=== PATIENT | female | born 1955 | race Caucasian/White ===

== ENCOUNTER 2018-01-15 01:18 | Inpatient (IN) | payer OTHER ==
--- NOTE | 2018-01-12 13:33 | Cons- Neurosurgical ---
General Information and HPI Consulting Request Date of Consult: 01/12/18 Requested By: Keyon Ku MD Reason for Consult: Severe myelopathy Source of Information: patient, EMS Exam Limitations: no limitations History of Present Illness: 62-year-old right-handed lady with 3-1/2 months of symptoms starting with numbness in her hand and difficulty with gait and the multiple falls who was found to be severely myelopathic Her symptoms are worse with extension and flexion of her neck but only marginally so Allergies/Medications Allergies: Coded Allergies: No Known Allergies (01/11/18) Home Med List: Amlodipine/Atorvastatin (Caduet 5 MG-10 MG Tablet) 5 MG-10 MG TABLET HTN/ CHOLESTEROL (Reported) Bupropion HCl (Wellbutrin Sr) 100 MG TABLET.ER 1 TAB PO BID SMOKING CESSATION (Reported) Meloxicam (Mobic) 15 MG TABLET 1 TAB PO DAILY MUCLE RELAXER (Reported) Current Medications: Current Medications Sig/Vida Start time Last Medication Dose Route Stop Time Status Admin Cefazolin Sodium 2,000 MG ONCE 01/15 0000 NR IV 01/15 0749 Past History Medical History Blood Transfusion Hx: No Neurological: myelopathy EENT: NONE Musculoskeletal: osteoarthritis Psychiatric: depression Surgical History Pertinent Surgical History: hysterectomy Psychosocial History Where Do You Live? Home Who Do You Live With? spouse Services at Home: None Primary Language: Czech Smoking Status: Current Everyday Smoker ETOH Use: denies use Illicit Drug Use: denies illicit drug use Living Will? unknown Power of Bogger Operator/HCP? unknown Name of POA/HCP: Other Social History: Nonpertinent Functional Ability ADLs Independent: dressing. Ambulation: independent IADLs Independent: shopping. Employment History Employment: Employed Profession/Employer: homemaking [employer] Retired? no Review of Systems Review of Systems: Numbness in her hands. Stiffness in her ambulation. Unbalance Review of Systems Constitutional: Denies: no symptoms. EENTM: Denies: no symptoms. Cardiovascular: Denies: no symptoms. Respiratory: Denies: no symptoms. GI: Denies: no symptoms. Genitourinary: Denies: no symptoms. Musculoskeletal: Reports: see HPI. Skin: Denies: no symptoms. Neurological/Psychological: Reports: see HPI. Hematologic/Endocrine: Denies: no symptoms. Immunologic/Allergic: Denies: no symptoms. All Other Systems: Reviewed and Negative Exam & Diagnostic Data Vital Signs and I&O Intake & Output 01/12 1600 01/12 0801/12 0000 01/11 0801/11 0000 Intake Total Output Total Balance Patient 185 lb Weight Physical Exam: Awake alert oriented. Decreased range of extension of her neck. Positive Spurling sign to the right but not left. No axial loading sign. Numbness of hands. Good strength upper extremity. Decreased sensation in his C6 and C7 distribution bilaterally. Absent bicipital reflex bilaterally. 1+ brachioradialis reflex bilaterally. 3+ tricipital reflex bilaterally. Bilateral Sehna's and increased finger flexors. Stiff gait. Increased tone in bilateral lower extremities. Effusion of reflexes of both knees. 6 beats of clonus both ankles. Toes upgoing Physical Exam General Appearance: well developed/nourished Head: atraumatic Eyes: Bilateral: normal appearance. Ears, Nose, Throat: normal pharynx Neck: limited range of motion Respiratory: normal breath sounds Cardiovascular: regular rate/rhythm Breasts deferred Peripheral Pulses: 2+ carotid (R), 2+ carotid (L) Gastrointestinal: soft Rectal: deferred Back: normal inspection Extremities: no edema Neurologic/Psych: abnormal gait, motor/sensory deficits, clonus as described above Cranial Nerves: normal hearing Reflexes: 0: bicep (R), bicep (L). 3+: tricep (L), tricep (L). 4+: knee (R), knee (L), ankle (R), ankle (L). Skin: intact Lymphatic: no anterior cervical remington Reproductive: deferred Pelvic: deferred Other Physical Findings: Significant findings none Last 24 Hours of Labs: Lab work pending Imaging Results: MRI demonstrated significant disc herniation at C4 5 and C5 6 with myelomalacia at C4 to C6 Other Results: Admitting Assessment/Plan Assessment/Plan 1 #1 cervical myelopathy #2 herniated cervical disc C4 5 C5 6 Problem List: 1. Myelopathy concurrent with and due to disorder of intervertebral disc of lumbosacral spine Copies To: Elmira MAGANA,Keyon Valadez Consult Acknowledgment - Thank you for your consult request.
[~2018-01-15] VITALS: Ht 157.5 cm; Wt 81.6 kg
[~2018-01-15 01:18] MED LIST: ASPIRIN325 M2 PO; CADUET 5 MG-101 EACH PO; CALCIUM600 M3 PO; DEXILANT30 M1 PO; MOBIC15 M1 PO; MULTIVITAMINS1 EAC9 PO; PROAIR HFA8.5 GM INH; VITAMIN D1000 UNIT PO; VITAMIN E100 UNI3 PO; WELLBUTRIN SR100 M2 PO
--- NOTE | 2018-01-15 11:37 | Operative Report ---
Operative/Inv Procedure Report Surgery Date: 01/15/18 Name of Procedure: #1 anterior cervical microscopic discectomy C4-5 C5-6 #2 preparation of space for fusion C4-5 C5-6 Pre-Operative Diagnosis: #1 cervical myelopathy #2 herniated cervical disc C4-5 C5-6 #3 myelomalacia C4 C5 C6 Post-Operative Diagnosis: Same Estimated Blood Loss: scant Surgeon/Pilling Machine Operator: Elmira MAGANA,Keyon Valadez(co-surgeon) MD VERDUGO Michael Anesthesia: general endotracheal tube Monitors: Neurophysiology monitoring IV Fluids: D5 normal saline Implants: Cages as per Keyon Ku MD Urine Output: Satisfactory Drains: None Specimens: HNP C4 5 Microbiology: None Tourniquet: None Complications: None Condition: Stable Operative Indication: 62-year-old woman with the onset of severe myelopathy without any definite trauma. She was found on her studies to have myelomalacia behind the body of 5 and significant disc disease at C4 5 and C5 6. Given the failure of conservative treatment and even moderately improve her she was a candidate for surgery. Indication for surgery alternative risks and possible complications were discussed at length no guarantees given complications including disfigurement and paralysis. Patient elected to have surgery performed Operative/Procedure Note Note: The patient was brought in supine intubated supine. Neuro monitoring was started at that point in time. The readings remained stable while we put her in a traction device while we slightly extended her neck and while we put her under 10 pounds of traction She received 2 g of intravenous antibiotic and 10 mg of Decadron The neck was prepped and draped in usual sterile manner and incision created and skin folds and sharp dissection carried down to the anterior cervical fascia. Nipomo were placed and confirmed that we were at the C4 5 and C5 6 disc spaces Under the illumination and magnification provided for by the Leica microscope and after insertion of horizontal and vertical self-retaining retractors the spaces were entered first at C4 5 and at C5 6. Disc material was removed with straight and up-biting pituitary and angled curettes. At C4 5 intervertebral body automatic spreader operator was advanced and the posterior longitudinal ligament opened with a 1 mm Kerrison and using 2 mm Kerrisons the significant osteophytes were removed and the foramen a open. Instruments were passed demonstrating clear passage of instruments down the foramen a and behind the bodies Attention was then directed to the C5 6 space where likewise disc was removed at this level there was more of a definite osteophytic overhang that went over the posterior longitudinal ligament. These osteophytes were removed with 2 mm Kerrison. Attention was then directed to the foramen a which were likewise opened with 2 mm Kerrisons once instruments were felt to pass readily it was decided to prepare the spaces for fusion After drilling down anterior osteophytes and using combination of curettes and rasps and drill the [place] both spaces were prepared for fusion especially starting at 56 and then ending off at C4 5 once the spaces were prepared the fusion was allowed to proceed and this will be dictated separately Blood loss was negligible sponges and count was correct recordings remained stable throughout the procedure to this point Findings: As above Discharge Disposition: PACU Additional Comments: Patient is aware that it may take sufficient the significant time for any improvement to show itself and that the main reason to do this is to protect the cord from further injury CC: Elmira MAGANA,Keyon Valadez
--- NOTE | 2018-01-15 12:59 | RADIOLOGY REPORT ---
EXAMINATION: CR CERVICAL SPINE/INTRAOPERATIVE FLUOROSCOPY CLINICAL INDICATION: Anterior cervical decompression and fusion C4-C5 and C5-C6 COMPARISON: CT scan of the cervical spine dated 01/10/2018. TECHNIQUE/FINDINGS: Fluoroscopic equipment was dedicated to the operating room for the performance of an intraoperative procedure. Several (6) spot films were acquired and are archived in PACS. Please refer to operative notes for procedural detail. FLUOROSCOPY TIME: 0.6 minutes. IMPRESSION: Administrative dictation for intraoperative fluoroscopy and image archiving in PACS. Please refer to operative notes for details.
--- NOTE | 2018-01-15 14:50 | PN- Neurosurgical ---
Subjective Subjective: POC pt in bed, deneis COLMENARES or paresthesias. pain 3/10. No N/V, tolerating clears No CP/SOB Objective Vital Signs and I&Os VSS, afebrile Physical Exam: gen-NAD lisa- callar in place resp- clear cardiac- RRR abd- ND, soft, NT ext- 2+ radial pulses, strength equal bilaterally, distal sensory and motor function intact Current Medications: Current Medications Sig/Vida Start time Last Medication Dose Route Stop Time Status Admin Albuterol Sulfate 2 PUF Q6P PRN 01/15 1215 AC INH Amlodipine Besylate 5 MG DAILY 01/16 0900 AC PO Bupropion HCl 200 MG BID 01/15 2100 AC PO Cefazolin Sodium 2,000 MG ONCE 01/15 0000 NR IV 01/15 2359 Omeprazole 40 MG DAILY AC 01/16 0700 AC PO Assessment/Plan Assessment/Plan 62yo F SP ACDF POD0. stable collar to be worn at all times PT- WBAT with assist pain management and valium for muscle relaxer decadron taper-4mg Q6h through tomorrow morning dvt ppx- alps and early ambulation. reg home meds except hold aspirin while in hospital FU AM labs dressing change POD2 Core Measures Venous Thromboembolism VTE Risk Factors Surgery No Mechanical VTE Prophylaxis d/t N/A MechProphylax Ordered No VTE Pharm Prophylaxis d/t Surgical Contraindication
--- NOTE | 2018-01-15 14:52 | Admission Core Measures ---
Acute Coronary Syndrome (CM) ACS Core Measures Acute Coronary Syndrome Diagnosis No Congestive Heart Failure (NEW) CHF Core Measures Congestive Heart Failure Diagnosis No Cerebrovascular Accident (NEW) CVA Core Measures CVA/TIA Diagnosis No Venous Thromboembolism VTE Core Laureen (View Protocol) VTE Risk Factors Surgery No Mechanical VTE Prophylaxis d/t N/A MechProphylax Ordered No VTE Pharm Prophylaxis d/t Surgical Contraindication Problem List As ranked by this Provider includes Assessment & Plan 1. Cervical spinal stenosis HOME MEDS Home Med List Albuterol Sulfate (Proair Hfa) 90 MCG HFA.AER.AD 2 PUF INH AD PRN RESP. ( Reported) Amlodipine/Atorvastatin (Caduet 5 MG-10 MG Tablet) 5 MG-10 MG TABLET 1 TAB PO DAILY BP/CHOLESTEROL (Reported) Aspirin (Aspirin*) 325 MG TABLET 1 TAB PO DAILY HEART/BLOOD (Reported) Bupropion HCl (Wellbutrin Sr) 100 MG TABLET.ER 2 TAB PO BID SMOKING CESSATION (Reported) Calcium (Elemental-Fr Calcarb) (Calcium) (Unknown Strength) TABLET (Unknown Dose) PO DAILY SUPPLEMENT (Reported) Cholecalciferol (Vitamin D3) (Vitamin D) (Unknown Strength) TABLET (Unknown Dose) PO DAILY SUPPLEMENT (Reported) Dexlansoprazole (Dexilant) 30 MG PASCUAL.BP 1 CAP PO DAILY GI (Reported) Meloxicam (Mobic) 15 MG TABLET 1 TAB PO DAILY PAIN/INFLAMMATION (Reported) Multiple Vitamin (Multivitamins) 1 EACH TABLET 1 TAB PO DAILY SUPPLEMENT ( Reported) Vitamin E (Unknown Strength) CAPSULE (Unknown Dose) PO DAILY SUPPLEMENT ( Reported)
[2018-01-15 15:00] VITALS: BP 148/72
[2018-01-15 17:00] VITALS: BP 138/70
[2018-01-15 19:00] VITALS: BP 122/70
[2018-01-15 21:00] VITALS: BP 148/60
[2018-01-16 00:55] VITALS: BP 146/74
[2018-01-16 05:00] VITALS: BP 150/74
--- NOTE | 2018-01-16 06:30 | Operative Report ---
Operative/Inv Procedure Report Surgery Date: 01/15/18 Name of Procedure: 1) C5-C6 Anterior Cervical Decompressive Discectomy And Instrumented Fusion ([facility]) 2) C4-C5 Anterior Cervical Decompressive Discectomy And Instrumented Fusion ([facility]) 3) C5-C6 Anterior Cervical Interbody PEEK Implant Instrumentation ([facility]) 4) C4-C5 Anterior Cervical Interbody PEEK Implant Instrumentation ([facility]) 5) C4-C6 Anterior Cervical Transvertebral Plate-Screw Implant Construct Instrumentation ([facility]) 6) C4-C5 And C5-C6 Anterior Cervical Interbody Moselized Local Autograft [place], Preparation And Implantation ([facility]) 7) C4-C5 And C5-C6 Use Of Operating Microscope ([facility]) Pre-Operative Diagnosis: Primary Surgically Treated Diagnoses: 1) C5-C6 Right Greater Than Left Paracentral Mid-Cervical Intervertebral Disc Disorder Radiologically Directly Associated With Severe Spinal Canal Stenosis, Spinal Cord Compression And Spinal Cord Signal Changes On MRI Which Are In Turn Clinically Causally Related To 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 Physiologically Manifest As Subjective And Objectively Documented Symptoms And Signs Of Bilateral (Left Slightly Greater Than Right) Mixed Myeloradicular Distribution Upper Extremity Weakness, Numbness, Dyscoordination And Hyperreflexia; Bilaterally Symmetrical Lower Torso (Suspended Sensory "Shorts" Cervical Central Cord Versus Possible Additional Thoracic Distribution) Numbness; Bilateral (Left Slightly Greater Than Right) Lower Extremity (Cervical Central Cord Versus Possible Additional Lumbar Myeloradicular Distribution) Give-Way Weakness, Proximal Numbness, Dyscoordination And Hyperreflexia; And More Global (Cervical Central Cord Versus Possible Additional Other Spinal Cord Distribution) Balance, Gait Abnormality And Spasticity (* = Refer Primarily Here And Secondarily Elsewhere In This Diagnosis List And Document For Detailed Myelopathy Symptom And Finding Description Regarding This Patient) 2) C4-C5 Right Greater Than Left Paracentral Mid-Cervical Intervertebral Disc Disorder Radiologically Directly Associated With Moderate To Severe Spinal Canal Stenosis, Spinal Cord Compression And Spinal Cord Signal Changes On MRI Which Are In Turn Clinically Associated With 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* 3) C4-C5 And C5-C6 (C4-C5 Central And C5-C6 Central, Bilateral Paracentral Amd Bilateral Uncovertebral) Mid-Cervical Spondylosis Radiologically Directly Associated With Significant (Severe At C5-C6 And Moderate To Severe At C4-C5) Spinal Canal Stenosis, Spinal Cord Compression And Spinal Cord Signal Changes On MRI Which Are In Turn Clinically Associated With 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* 4) C4-C5 And C5-C6 Mid-Cervical Multizone (C4-C5 Central Bidirectional And C5-C6 Central, Bilateral Paracentral And Bilateral Uncovertebral Circumferential ) Osseous And Displaced Soft Tissue Cervical Spinal Stenosis 5) Mid-Cervical Moderate To Severe Bilateral Myelopathy* Primarily Directly Related To But Also With Additional Clinical Features Of Uncertain Causal Relationship To C4-C5 And C5-C6 Intervertebral Disk Disorder Or Spondylosis Detailed Elsewhere In This Diagnosis List And Document 6) C5 Level Central Cord Syndrome (C5 Radiologic Level By MRI, Mixed Subjective And Objectively Confirmed Lower Torso And Proximal Lower Extremity Suspended Sensory Level) 7) Bilateral Upper Extremity Mixed Distribution Primary Distal And Lesser Proximal (Finger Extension, Finger Abduction, Wrist Extension And Shoulder External Rotation As Well As Diffuse Subjective Lower Extremity Give-Way) Subjective And Objectively Documented Motor Neurological Deficit (Weakness) With Reported Associated Episodes Of Loss Of Dexterity, Fine Motor Dyscoordination, Early Fatigue, Giving Way, Dropping Of Even Light Objects And Falling Due To Weakness 8) Bilaterally Symmetrical Distal Upper (Hands) And Diffuse Lower Extremity Mild To Moderate Subjective Reported But Not Objectively Physical-Examination Detectable Coordination Neurological Deficit Manifest As Reported Episodes Of Deterioration In Quality Of Both Fine And Gross Motor Function Including Writing , Manipulation Of Small Objects, Prolonged Holding Of Even Light Objects, Positioning Of Upper And Lower Extremities In Space, Balance And Ambulation 9) Balance Disorder 10) Difficulty Walking Secondary Surgically Treated Diagnoses: 11) C5-C6 Right Greater Than Left Paracentral Mid-Cervical Intervertebral Disc Disorder Radiologically Directly Associated With Severe Spinal Canal And Bilateral Neuroforaminal Stenosis And Spinal Nerve Root Compression (On Radiographs, CT Scan And MRI) Which Are In Turn Clinically Causally Related To Bilateral Acute Mid-Cervical Level Distribution Compressive Radiculopathy Physiologically Manifest As Subjective And Objectively Documented Symptoms And Signs Of Bilateral (Left Slightly Greater Than Right) Mixed Myeloradicular Distribution Upper Extremity Weakness, Numbness, Dyscoordination And Hyperreflexia ( = Refer Primarily Here And Secondarily Elsewhere In This Diagnosis List And Document For Detailed Radiculopathy Symptom And Finding Description Regarding This Patient) 12) C4-C5 Right Greater Than Left Paracentral Mid-Cervical Intervertebral Disc Disorder Radiologically Directly Associated With Moderate To Severe Spinal Canal And Bilateral Neuroforaminal Stenosis And Spinal Nerve Root Compression (On Radiographs, CT Scan And MRI) Which Are In Turn Clinically Associated With Acute Mid-Cervical Level Distribution Compressive Radiculopathy 13) C4-C5 And C5-C6 (C4-C5 Central And C5-C6 Central, Bilateral Paracentral Amd Bilateral Uncovertebral) Mid-Cervical Spondylosis Radiologically Directly Associated With Significant (Severe At C5-C6 And Moderate To Severe At C4-C5) Spinal Canal And Bilateral Neuroforaminal Stenosis And Spinal Nerve Root Compression (On Radiographs, CT Scan And MRI) Which Are In Turn Clinically Associated With Acute Mid-Cervical Level Distribution Compressive Radiculopathy* * 14) C7 BilateralMixed Distribution (Primarily Distal But Also With Secondary Proximal) Mid-Cervical Moderate To Severe Bilateral Upper Extremity Radiculopathy Primarily Related To But Also With Clinical Features Likely Distinct From Concurrent Operative Level Intervertebral Disk Disorder Or Spondylosis (As Detailed Elsewhere In This Diagnosis List And Document) 15) Bilateral Distal Upper Extremity, Circumferential Lower Torso And Proximal Lower Extremity Distribution Hypoesthetic But Not Dysesthetic Disturbance Of Skin Sensation 16) Bilateral Distal Upper Extremity, Circumferential Lower Torso And Proximal Lower Extremity Distribution Paresthetic Disturbance Of Skin Sensation Without Dysesthetic Component 17) C4-C5 Central Central Likely Acute Displacement Of Mid-Cervical Intervertebral Disc With Central Spinal Canal Encroachment Contributing To Significant Central Spinal Canal Stenosis And Spinal Cord Compression 18) C5-C6 Broad-Based Diffuse Degenerative Displacement Of Mid-Cervical Intervertebral Disc With Central, Bilateral Paracentral And Bilateral Intraforaminal Spinal Canal Encroachment Contributing To Severe Multizone Spinal Canal Stenosis And Neural Element (Spinal Cord And Exiting Nerve Root) Compression 19) C4-C5 And C5-C6 Diffuse Mid-Cervical Disk Space Margin (Large Posterior And Posterobilateral Endplate Central Canal And Bilateral Paracentral Lateral Recess) And Bilateral Uncovertebral Intraforaminal Compressive Osteophytic Spondylosis 20) C4-C5 And C5-C6 Mid-Cervical Mid Grade I Degenerative Compressive Cervical Retrolisthesis 21) C4-C5 And C5-C6 Mid-Cervical Spinal Segmental Degenerative Translational Instability 22) Severe, Activity And Functionally Limiting, Intermittently Incapacitating Neck (Cervical Spine) Pain (Cervicalgia) 23) C5-C6 Osteoarthritic Degeneration Of Mid-Cervical Intervertebral Disc 24) C4-C5 Osteoarthritic Degeneration Of Mid-Cervical Intervertebral Disc 25) C4-C5 And C5-C6 Cervical Region (C4-C5 Moderate To Severe And C5-C6 Severe ) Spinal Cord Compression And Contusion As Documented On Preoperative Cervical Spine MRI Study And Considered Clinically Significant In Association With Moderate Symptoms And Examination Findings Of Correlating Myelopathy* 26) C4-C5, C5 And C5-C6 Spinal Cord Level Continuous Cervical Region Moderate To Severe Spinal Cord Myelomalacia As Documented On Preoperative Cervical Spine MRI Study And Considered Clinically Significant In Association With Moderate Symptoms And Examination Findings Of Correlating Myelopathy* 27) Hyperreflexia (Moderate Bilaterally Symmetrical Diffuse Upper And Lower Extremity Hyperactive Reflexes Including Percussion Reflexes And Abherent Reflex Responses (Reverse Radial Reflex, Rosario's Sign And Clonus But With Normal Plantar Directed Babinski's Response) 28) C4-C5 And C5-C6 Multizone Multizone Adherent, Tethering And Compressive Mid-Cervical Epidural Fibrosis As Secondary Contributory Component Of Neural Element Compression 29) C4-C5 And C5-C6 Bilateral Mid-Cervical Moderate To Severe Hypertrophic Facet Arthropathy 30) C4-C5 And C5-C6 Bilateral Mid-Cervical Moderate To Severe Degenerative Osteoarthritic Facet Arthropathy Comorbid Diagnoses: 31) Active Smoker 32) Moderate Unspecified (But Likely Hypercaloric) Obesity (By World Health Organization Criteria) Without Obvious Associated Health Complication Or Significant Adverse Effect On Surgical Or Perioperative Prognosis 33) Very High Body Mass Index (BMI = 33.5) (By World Health Organization Criteria) Potentially Adversely Affecting Acute And Stocking Inspector Spine General And Surgical Orthopaedic Treatment As Well As Both Orthopaedic And Overall Health Outcomes Post-Operative Diagnosis: Same as preoperative diagnosis list with the addition of: Intraoperative Surgically Treated Diagnoses: 1) C4-C5 And C5-C6 Expected Mid-Cervical Spinal Segmental Intraoperative ( Post-Discectomy And Pre-Instrumentation) And Potential Postoperative (Post- Discectomy, Post-Instrumentation And Pre-Arthrodesis) Instability Requiring Operative Instrumented Stabilization Intraoperative And Postoperative Diagnoses Relevant To Postoperative Care: 1) C4-C5 And C5-C6 Expected Mid-Cervical Potential Early Postoperative Microinstability Indicating Acute Postoperative Activity Limitation And Rigid Cervical Orthosis Use 2) Anticipated Acute Postoperative Neck Region Pain Potentially Requiring Sedating Postoperative Narcotic Analgesic Medication And Inpatient Nursing Observation For Initial Sedation Monitoring And Supervised Mobilization Following Complex And Extensive But Overall Uncomplicated Multilevel Anterior Cervical Discectomy And Instrumented Fusion (ACDF) 3) Anticipated Acute Postoperative Neck Region Muscular Spasm Potentially Requiring Sedating Postoperative Muscle Relaxant Medication Following Above Procedure 4) C4-C5 And C5-C6 Early Anterior Cervical Spinal Decompression Postprocedural Status 5) C4-C5 And C5-C6 Early Anterior Cervical Spinal Arthrodesis Postprocedural Status 6) C4-C5 And C5-C6 Presence of Anterior Cervical Spine Interbody PEEK Cage And Anterior Transvertebral Plate-Screw Osseous Stabilization Instrumentation Construct Implants 8) Potential For Physiologically Limited Bone Healing Potential Relative To The Standard Healing Likelihood And Timecourse For A Standard (Single Level) ACDF Due To The Multilevel Nature Of This Patient's Procedure And Patient History Of Current Active Tobacco Use Which Meet Criteria For The Use Of An External Pulsed Electromagnetic Field Stimulation Device To Potentially Optimize And Accelerate Osseous Fusion Formation Estimated Blood Loss: less than 50ml Surgeon/Wire Rope Fabrication Supervisor: JAYASHREE BUTLER MD - Primary Admitting Orthopaedic Spine Co-Surgeon JEB GREGORIO MD - Primary Consulting Neurological Spine Co-Surgeon Surgical Providers: Regarding Orthopaedic Spine Portion Of Procedure Dictated Here: Jayashree Butler M.D. - Orthopaedic Spine Surgeon (Co-Surgeon/Primary Admitting Surgeon) Jeb Gregorio M.D. - Neurosurgeon (Co-Surgeon/Wire Rope Fabrication Supervisor Surgeon) See Neurosurgical Operative Report Regarding Surgical Provider Designation For Neurosurgical Spine Portion Of Procedure Anesthesia: general endotracheal tube Monitors: Standard general anesthesia and other perioperative monitoring was performed per anesthesia protocols. Standard Intraoperative EMG, SSEP, recurrent laryngeal nerve and MEP electrophysiological monitoring (NeuroAlert) Refer to anesthesia and intraoperative electrophysiological monitoring records for details. IV Fluids: Standard anesthesia fluid management was performed without requirement for additional or emergent fluid resuscitation. Refer to anesthesia records for details. Implants: Implants: Implants Placed: Anterior Interbody Implants: Medtronic Cornerstone Anatomic PEEK PTC Interbody Cage Implants: 2 x 8 mm Height x 11 mm Depth x 14 mm Width At C4-C5 And C5-C6 Anterior Transvertebral Cervical Implants: Medtronic Anterior Cervical [place] Vision Elite (AVE) Plate- Screw Construct: 1 x 40 mm 2-Level (2 Intervertebral Motion Segment, 3 Vertebral Body Element), 6-Hole AVE Plate Implanted From C4 To C6 With Fixation At The C4, C5 And C6 Vertebral Body Levels 2 x 13 mm Length x 4.0 mm Diameter Fixed Angle Self- Tapping (FAST) AVE Screws Implanted Bilaterally At C6 4 x 13 mm Length x 4.0 mm Diameter Variable Angle Self- Tapping (VAST) AVE Screws Implanted Bilaterally At C4 And C5 Graft: Graft Placed: Morselized Locally Harvested Autograft: Harvested From C4-C5 And C5-C6 Levels: Resected Osteophytes (Anterior And Posterior Endplate Margin As Well As Uncovertebral) Decorticated And Drill Contoured Osseous Endplate Bone Densely Packed In The Central Chambers Of The Interbody Cages At C4-C5 And C5-C6 Urine Output: Refer to anesthesia records for details. Drains: None Specimens: Removed cervical disk fragments sent to pathology for analysis per hospital protocol Complications: None Operative/Procedure Note Note: Preoperative Holding Area Assessment/Preparation: The patient was evaluated in the preoperative holding area prior to surgery and no clinical changes or contraindications to surgical intervention were documented compared to the preoperative office and clearance evaluations. Her moderate myelopathic physiologic changes including upper extremity motor, sensory, coordination, reflex and functional subjective symptoms and objectively documented deficits are unchanged from clearance evaluations. As in the office, the patient was otherwise grossly neurovascularly intact in both upper and lower extremities to standard testing. Her balance and ambulatory changes were not tested immediately preoperatively but were unchanged compared to previous assessments per patient report. Active, patient controlled Lhermitte's and Spurling's maneuvers were negative. Her preoperative hyperreflexia was unchanged from preoperative assessment and there were no new hyperactive, abherent or otherwise abnormal reflexes to suggest acute, resting or positional neural element compression that might contraindicate surgery or be associated with increased neurological intraoperative risk based on immediate preoperative assessment. The surgical plan and site were confirmed with the patient and preoperative paperwork was finalized. The region of the intended surgical site was cleansed, prepped and marked per protocol. The surgeons, anesthesia care team members, and operating room staff confirmed the patient identity, surgical procedure, and operative site as well as other clinical details with the patient in an initial documented preoperative confirmation (awake time out) prior to the administration of significant sedation or anesthesia. Prior to receiving any preoperative medications, she confirmed her oral intake status as NPO since midnight prior to surgery. Surgical Procedure: Dr. Butler and Dr. Gregorio were both present for and participated equally as co-surgeons in all clinically significant phases of the surgical procedure documented below as well as for all critical intraoperative and perioperative decisions and interventions. The set-up, positioning, arthrodesis, instrumentation and closure portions of the procedure are described in greatest detail in this operative report. Refer to Dr. Marie Neurosurgical operative report for additional details particularly regarding the electrophysiological monitoring, application of cervical traction, exposure, discectomies, osteophytectomies, neural element decompression and microsurgical (use of the operating microscope) portions of the procedure. Set-Up/Positioning/Exposure - The patient was brought to the operating room in stable condition and underwent uncomplicated induction of general anesthesia, intubation, and placement of all appropriate monitors, lines, tubes and catheters without difficulty. Administration of 2 grams of IV Ancef based on patient body mass was given for surgical prophylaxis and was completed at least 30 and less than 60 minutes prior to making an incision. Given the significant preoperatively documented myeloradiculopathic symptoms and signs along with the radiologically documented spondylosis, deformity, instability and stenosis associated with severe central canal spinal cord compression and signal change on MRI, corticosteroids ( Decadron 10 mg) was recommended by the surgeons for its theoretical neuroprotective effects as well as to optimize perioperative airway management and nausea prophylaxis. This medication was administered intravenously by the anethesia team shortly after intubation per standard anesthesia protocols without any adverse effect noted. The patient was positioned supine on the operating table in standard fashion for an anterior cervical discectomy and instrumented fusion taking care to protect and stabilize the spine during positioning, avoid positions of nerve stretch, pad all pressure points, and support the head and neck in a slightly extended position using a rolled sheet under the scapulae and a gel donut head rest under the occiput. Care was taken during pre-operative positioning and throughout the procedure to maintain the head and neck within the range of angulation documented by the patient to be comfortable, asymptomatic and without exacerbation of any prior symptoms during the immediate preoperative assessment. Harness cervical traction apparatus was placed in standard fashion with 15 pounds of stabilizing weight applied taking care to avoid any cutaneous shear force or force transmission to the endotracheal tube. The operating table was gently upward flexed at the waist and downward flexed at the knees in a partial "beachchair" position to optimize stability of the patient on the table as well as the angle of access to the cervical disk spaces particularly under microscope visualization. Electrophysiological monitoring electrodes were placed per standard monitoring protocol. Wrist cuffs were placed with sufficient circumferential approximation so that bilateral upper extremity traction could be applied during the case if necessary for radiologic visualization, but loose enough that there was no pressure to the wrists when traction was not being applied. Care was taken to insure that all IV sites and monitoring leads were protected in the event that wrist traction was required during the procedure. The arms were well padded and tucked at the patient's sides, again taking care to protect all IV sites and monitoring leads. Baseline preoperative electrophysiological monitoring readings were obtained and no gross abnormalities were noted. A cross-table lateral fluoroscopic image was obtained with a radiopaque skin marker in place to determine the optimal level for incision, to document optimized intraoperative cervical alignment as well as to confirm acceptable radiologic visualization and definitive numerical identification of the intended operative levels with sufficient detail down to the lower cervical and cervicothoracic levels throughout the procedure. No upper extremity traction was required to obtain optimal visualization during this localization phase of the procedure. The intended incision was planned within the primary skin crease closest to the radiopaque marker which was confirmed to be directly over the planned surgical levels. This anterior cervical incision was delineated with a surgical ink marker prior to prep and drape. The approach, exposure, initial hemostasis, retractor placement, fluoroscopic identification of intended operative levels, use of the operating microscope, discectomy, posterior disc space endplate and uncovertebral osteophytectomy as well as the central and foraminal neural element decompression are dictated in greatest detail by Dr. Gregorio in his Neurosurgery operative report and are only briefly reviewed here. Refer to that neurosurgical operative document for additional details. The arthrodesis portions of the procedure including preparation and decortication of the disk space, harvest and implantation of autograft and implantation of both interbody and transvertebral instrumentation is described in detail in this operative report. The surgical field was prepped and draped using standard sterile technique with Duraprep, sterile towels, an Ioband incise drape and an edge-adhesive rectangular cervical surgical field drape. Prior to beginning the procedure, the surgeons, anesthesia care team, and operating room staff again documented the patient identity, surgical procedure, and operative site in a final confirmation ("final time out") per standard hospital and [facility] protocol. In brief summary of the primarily neurosurgical portions of the procedure, after sterile prep and drape performed using standard technique described above, the previously marked right paramedian anterior cervical incision was infiltrated with local anesthetic, and made in a transverse curvilinear fashion within a major anterior neck skin crease overlying the intended operative levels using a #10 scalpel blade. The incision was extended from just lateral of midline to just medial of the medial palpated edge of the sternocleidomastoid muscle at that level. Hemostasis was achieved using Bovie and Bipolar electrocautery beginning with the incision and continuing throughout the procedure with settings appropriate to each progressive level. The dissection was carried through the subcutaneous layer in line with the incision, both the upper and lower skin flaps were mobilized so as to minimize traction injury, and the platysma was then bluntly dissected and divided longitudinally in line with its fibers to expose the underlying strap muscles while allowing for later primary [id number] platysma muscular repair. Soft tissue dissection continued down to the prevertebral space in the plane between the esophagus and trachea medially and the palpated pulse of the vertebral artery laterally taking care to gently manually retract and protect these structures throughout the dissection using hand-held Cloward retractors. The prominent anterior osteophytes evident on preoperative radiologic stiudies were readily palpable at the anterior margin of the vertebral levels exposed at the depth of the surgical dissection which helped to confirm localization of the intended operative level. With the soft tissue dissection complete down to the prevertebral space, the anterior longitudinal ligament was identified overlying both disk space levels and further exposed sufficiently to allow safe and stable placement of radiologic markers. Two spinal needles were bent in a closely spaced double right-angle configuration to prevent excessive penetration, gently placed into the two exposed disks and confirmed to be at the intended operative levels (C4- C5 and C5-C6) on cross-table lateral fluoroscopic image. No additional upper extremity traction was required for optimal fluoroscopic visualization down to the lower cervical levels and the critical cervical region was optimally visualized throughout the procedure without the need for additional cranial or extremity traction. Once the appropriate levels were fluoroscopically confirmed , dissection was optimized to fully expose both intended operative disc spaces as well as the adjacent medial margins of the longus colli muscles which were elevated using Bipolar and Bovie electrocautery to optimize stable placement of the transverse serrated-edge (toothed) Trim-line retractor blades and self- retaining retractor arm. Use of this submuscular dissection technique insured full horizontal exposure while minimizing pressure on the more superficial medial and lateral structures so as to minimize risk of potential adverse effects associated with retraction. The longitudinal smooth-edge Trim-line retractor blades and arm were then placed using standard technique and configuration so as to optimize exposure while taking care to protect surrounding structures. The Leica operating microscope was sterilely draped and positioned over the operative site so as to optimize illumination and visualization for the microsurgical decompressive portion of the procedure. Discectomy/Osteophytectomy/Neural Decompression - After confirming optimized exposure and visualization, a rectangular anterior annulectomy was performed first at C4-C5 using a #11 scalpel blade. The disc space was gently distracted using a long-armed cervical intervertebral occupational health and safety officer and a majority of the discectomy was performed with straight and curved curettes alternating with straight and angled pituitary rongeurs down to the level of the uncovertebral joints. The disk material contained within the disk space and removed during initial discectomy was moderately degenerative at this level. At the posterior margin of the disc space, even more severely degenerative and fragmented disk material was found along with a disassociated fragment extending within a disk-osteophyte complex into the central, paracentral lateral recess and foraminal zones and even extending beyond the spondylotic projections thus additionally contributing to the broad based bilateral ventral spinal canal and foraminal encroachment and neural compression consistent with the findings on preoperative MRI. This herniated degenerative material was noted to elevate and cause buckling of the partially incompetent degenerative posterior longitudinal ligament centrally and actually extrude lateral to the ligamantous complex into the lateral canal and foraminal zones particularly posterior to the uncovertebral joint complexes associated with significant direct or indirect neural element compression in all regions. The primary compressive disassociated, herniated and partially extruded disk fragment as well as all smaller impinging fragments were gently removed with a ball tip lbqrp-omple-voks and micro-pituitary rongeur. All resected disc material was sent to pathology for analysis per hospital protocol. Using curved curettes and Kerrison rongeurs, the posterior longitudinal ligament and all impinging osteophytes were cleared of dhesions and resected. Bilateral foraminotomies were then performed using Kerrison rongeurs to fully decompress all exiting neural structures at the operative levels. Upon completion of the decompression, a ball-tipped lyysg-pzvtc-wjqv was gently passed out each foramen ventral to the neural elements to document clear and unimpeded passage of the exiting root. Both exit zones as well as the central canal were found to be widely patent and without residual compression following the decompressive portion of the procedure. All decompressed bone fragments of the anterior osteophytes and endplates were saved and cleaned of any attached soft tissue for later reimplantation as morselized local autograft. No significant or sustained irritability, hyperactive neural firing, muscle contraction or electrophysiological monitoring changes were noted on initial posterior disk fragment and osteophyte removal or during foraminotomy. Hemostasis of osseous and epidural bleeding was achieved using Thrombin soaked Gelfoam and paddies gently applied and removed by irrigation with all bleeding controlled. Final complete central and foraminal decompression was confirmed by gentle passage of a blunt nerve hook and ball-tip microdissector behind both the upper and lower vertebral bodies and out each foramen without resistance. Attention was then turned to the C5-C6 discectomy and decompression. The C5-C6 level was addressed using identical technique to that described above for C4-C5 including exposure, annulectomy, disc and herniated fragment excision, osteophytectomy and bilateral foraminotomies. As at the C4-C5 level described above, a similar degree of central, bilateral paracentral and foraminal degenerative subligamentous disk fragment compression was identified causing tenting of the posterior longitudinal ligament and associated significant indirect compression within the canal. There was less projection of the disk fragment lateral to the longitudinal ligament and less direct lateral or intraforaminal extension and encroachment at this level. Significant spondylosis was also noted particularly in the lateral uncovertebral regions causing similar compression to that seen previously at C4-C5 and consistent with preoperative radiologic studies. The posterior encroaching disc material was removed, followed by resection of endplate and uncovertebral osteophytes. Bilateral foraminotomies were performed using standard technique. No significant or sustained irritability, hyperactive neural firing, muscle contraction or electrophysiological monitoring changes were noted on posterior discectomy, osteophyte removal or during foraminotomy at either operative level. Full decompression was again documented by gentle palpation in all zones at both decompressed levels before proceeding with the fusion portion of the procedure. The microscope was kept in place for the interspace preparation and most of the interbody implantation portion of the procedure. Arthrodesis/Instrumentation - The fusion portion of the procedure including instrumentation and grafting is dictated in greatest detail in this operative report. Arthrodesis was first performed at the C5-C6 level using standard technique. A Leksell rongeur was used to resect the anterior osteophytes at the margins of each disc space until the anterior surface across the disc space was flush and optimized for placement of an anterior transvertebral plate. All resected anterior osteophyte bone was cleaned, morselized, and saved along with the bone resected from decompression for later reimplantation as nonstructural locally harvested autograft. The [employer] drill with a 5 mm cutting awa was used to remove anterior osteophytes and cartilaginous endplate as well as to partially decorticate the osseous endplates in a tapered fashion from slightly more narrow anteriorly to slightly wider posteriorly leaving both anterior and posterior, superior and inferior vertebral wall projections of 1-2 mm extending into the interspace so as to prevent implant migration. This contouring resulted in slightly more anterior than posterior distraction and disc space height jain with partial jain of lordosis when the anatomically contoured lordotic PEEK implant was later impacted into the tapered interspace. This also insured optimal interference fit of the intervertebral implant and lateral ligamentous tension of the interspace for optimal fusion. Hemostasis was confirmed and both the interspace and surgical site were thoroughly irrigated prior to placement of the implant centrally packed with morselized autograft. All stabilizing and traction weights were removed from the halter harness. With no Halter traction or interspace distraction applied to the operative level, the C5-C6 disk space was templated with optimal fit and soft tissue tension documented using a standard trial of 8 mm height, 11 mm depth and 14 mm width. Just prior to interbody implant placement, the central portion of each endplate was breached to bleeding cancellous bone using the drill and curved curette at the planned final position of interface with the autograft-filled central chamber of the implant so as to promote optimal ingrowth. The peripheral zones of both osseous endplates surrounding this central breach were preserved at the perimeter for optimal support of the implant so as to minimize the risk of subsidence. The 8 mm x 11 mm x 14 mm Medtronic Anatomic PEEK PTC (Pure Titanium Coated) implant central chamber was densely packed with morselized autograft such that graft was projecting slightly beyond the height of the implant so as to provide optimal graft-endplate contact after central disk space placement of the graft-filled implant. The implant was then gently impacted into the interspace with proper anatomic endplate orientation until it was recessed behind the anterior vertebral wall superior and inferior ridges which had been fashioned to prevent migration. Once the implant was in optimal position, excellent interference fit was documented with no motion seen when gentle anteriorly directed pressure was applied to the posterior aspect of the graft on each side using a nerve hook. This maneuver also allowed palpation behind the graft to insure that there was sufficient space between the graft and the thecal sac with no impingement. Identical disk space preparation and interbody instrumented arthrodesis procedure was then performed at C4-C5 using similar trial and final implantation technique and implant type and dimensions to that described above for C5-C6. This resulted in identical optimized final intraoperative assessment and fixation as was achieved at the lower level. After endplate preparation and based on trial sizing, an identical type and size of interbody implant (8 mm x 11 mm x 14 mm Medtronic Anatomic PEEK PTC cage) as that described for C5-C6 was selected, centrally filled with morselized local autograft and gently impacted into the C4-C5 interspace in proper anatomic endplate orientation with good interference fit and jain of disk space height, foraminal height and stability. Once the interbody instrumentation was completed optimally at both operative levels, all traction was removed and hemostasis was achieved using small pieces of Thrombin soaked Gelfoam as well as FloSeal placed adjacent to the interbody implants where necessary. Bone wax was also applied to the anterior vertebral body surfaces for any necessary additional osseous hemostasis. The microscope was then removed and attention was turned to the anterior plate and screw construct placement and stabilization spanning the C4- C6 segment. Final contouring of the anterior vertebral body mann was performed using the [employer] Hamzah drill and cutting awa until an appropriately sized plate could rest flush on all anterior vertebral body surfaces to provide optimal fixation. A 40 mm Medtronic [place] Vision Elite (AVE) 6-hole, 2 fusion level (2 motion segment, 3 vertebral level) anterior cervical stabilization plate was chosen such that the margins of the upper and lower screw holes were positioned just beyond the most superior and inferior endplates of the operative levels respectively with each screw hole entirely over vertebral body cortical wall at each end of the plate so as to optimize screw purchase and plate fixation. This plate size and position resulted in optimal fixation while minimizing any risk of plate extension too close to either the upper or lower adjacent unfused disk level. The plate was contoured into optimal lordosis so as to optimally match the curvature of the anterior wall of the vertebral column at the operative levels and even slighty accentuated to restore additional cervical segmental lordosis prior to implantation using the plate hickey specifically designed for this system. Ultimately, the endplate and plate contouring contributed to noticeable partial jain of cervical lordosis through the fused segments from a hypolordotic preoperative alignment. However, given that the patient's preoperative loss of lordosis was not felt to constitute a clinically significant deformity there was no formal corrective procedure required for improved outcome in this case and so the achieved sagittal plane lordotic correction was considered an included portion of the arthrodesis not requiring a distinct and separately designated deformity corrective procedural service in this case. Screws were placed using standard technique with trajectories which were divergent in the sagittal plane and convergent in the axial plane so as to provide optimal purchase and load sharing with the interbody graft. Fixed angle 13 mm x 4.0 mm screws were placed at C6 bilaterally and variable angle 13 mm x 4.0 mm screws were placed at C4 and C5 bilaterally to promote load sharing, force transmission and compression across the anterior column and interbody cages as well as the central implant chamber autograft. All screws were found to have optimal insertional and final tightening torque during placement as well as good fixation and final seating in the plate. The interbody implants as well as the anterior plate and screw construct were confirmed to be in good position on final intraoperative cross-table lateral fluoroscopic images which were uploaded to the [facility] PACS system. The final plate-screw rotating locking mechanism was set over the screw heads at each level with good coverage so as to minimize the risk of screw loosening or protrusion. Continuous electrophysiological monitoring throughout the procedure showed no prolonged or persistent adverse changes at any point during the decompression, instrumentation, or at any other time during the case. Closure/Recovery - The surgical site was thoroughly irrigated and hemostasis was carefully achieved prior to closure. FloSeal (5 cc) was placed in the prevertebral space and lateral margins of the operated disc space around the implants where helpful to optimize the already well-controlled osseous and soft tissue hemostasis. The surgical site was found to be dry at the end of the procedure and consequently no drain was needed. Initial counts were correct prior to closure. The deep soft tissue layer was loosely reapproximated in a [id number] closure using #2- 0 undyed Vicryl interrupted, simple suture technique. The platysma rxfv-cb-davd closure was also performed with #3-0 undyed Vicryl interrupted, simple suture technique. The superficial subcutaneous layer was closed vertically with #3-0 undyed Vicryl inverted, interrupted, simple sutures. The skin was closed using #4-0 undyed running subcuticular Polysorb suture followed by Steri-Strips applied with Mastisol. A standard, sterile medium island dressing was placed with good coverage. All counts were correct prior to removing the drapes. The Halter harness was removed and a Sears semi-rigid buttressed hard foam cervical collar was placed and optimally fitted prior to awakening the patient. The patient was extubated on the operating table without difficulty and then transferred to the hospital bed in the supine position taking care to stabilize the head and neck during transfer. Recovery Room Assessment: The patient was taken to the recovery room in stable condition where neurological examination showed grossly normal function with no new deficits or worsening compared to her baseline pre-operative assessments on initial recovery from anesthesia. The patient will follow the usual postoperative protocol for multilevel anterior cervical discectomy, osteophytectomy and central canal as well as bilateral recess and foraminal neural element decompression with anterior interbody local autograft fusion stabilized by intervertebral and anterior transvertebral instrumentation. This postoperative care plan will include standard overnight nursing care and pain control, early hospital postoperative extremity and ambulatory mobilization, collar use when out of bed and home discharge planning for the morning after surgery with instructions to minimize head and neck motion initially so as to optimize fusion healing. Outpatient rehabilitation program will be arranged through the office to begin approximately 4 weeks after surgery assuming standard and uncomplicated postoperative course and following clearance at initial postoperative follow-up assessment. Accommodations to the above plan may be required due to the severity of the patient's preoperative condition which included severe stenosis causing myelopathy with multi-extremity sensory, motor and functional deficits as well as balance disorder, ambulatory difficulty and episodes of falling. Although home discharge is the initial plan for this patient, she would be an excellent candidate for short-term inpatient rehabilitation program if she does not fully meet criterion for home discharge and particularly if there remain concerns regarding independent function and basic self-care, safe independent mobilization, ability to comply with postoperative instructions (particularly immobilization in a collar when up) or fall risk. Given the multilevel nature of her fusion procedure and her intention to return to vigorous work, a spinal fusion osteogenesis stimulator is indicated and will be ordered, applied and followed through the office. Discharge Disposition: PACU CC: Elmira MAGANA,Jayashree Valadez; Darline MAGANA,Jeb Guajardo
--- NOTE | 2018-01-16 07:22 | Patient Discharge Instructions ---
Discharge Instructions General Discharge Information You were seen/treated for: Neck and arm pain with myelopathy related to cervical hnp c4-5, c5-6 You had these procedures: ACDF C4-5, C5-6 Watch for these problems: Increasing pain despite the use of pain medication. Increasing redness, warmth, or swelling on or near incision Drainage of any type from incision Worsening numbness or tingling to bilateral arms Inability to speak or swallow Fever greater than 101.5 Do not soak the wound: Yes Other wound care: Keep wound clean and dry Special Instructions: Collar at all times Diet Continue normal diet: Yes Recommended Diet: Regular Additional DIET Information: Begin with soft foods that are easy to swallow Advance diet texture as tolerated Activity Full Activity/No Limits: No Activity Self Limited: Yes Pounds, do NOT lift more than: 5 Acute Coronary Syndrome Inclusion Criteria At DC or during hospital stay patient has or had the following: ACS DIAGNOSIS No Discharge Core Measures Meds if any: Prescribed or Continued at Discharge Meds if any: NOT Prescribed or Continued at Discharge Congestive Heart Failure Inclusion Criteria At DC or during hospital stay patient has or had the following: CHF DIAGNOSIS No Discharge Core Measures Meds if any: Prescribed or Continued at Discharge Meds if any: NOT Prescribed or Continued at Discharge Cerebrovascular accident Inclusion Criteria At DC or during hospital stay patient has or had the following: CVA/TIA Diagnosis No Discharge Core Measures Meds if any: Prescribed or Continued at Discharge Meds if any: NOT Prescribed or Continued at Discharge Venous thromboembolism Inclusion Criteria VTE Diagnosis No VTE Type NONE VTE Confirmed by (Test) NONE Discharge Core Measures - Per Current guidelines, there needs to be overlap - treatment for the first 5 days of Warfarin therapy. - If discharged on Warfarin prior to 5 days of - overlap therapy, the patient will need to be - assessed for post discharge needs including - *Post discharge parental anticoagulation - *Warfarin and/or parental anticoagulation education - *Follow up date to check INR post discharge At least 5 days overlap therapy as Inpatient No Meds if any: Prescribed or Continued at Discharge Note: Overlap Therapy is Warfarin and Anticoagulant Meds if any: NOT Prescribed or Continued at Discharge
--- NOTE | 2018-01-16 07:27 | Surgical Discharge Summary ---
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 Home Who Do You Live With? Spouse Services at Home: None What is Your Primary Language? Belarusian ETOH Use: denies use Other Addictive Behavior: Nonpertinent Review of Systems: See H&P Hospital Course Course Attending Physician: Elmira MAGANA,Keyon Valadez Primary Care Physician: Gin MAGANA,[facility] Course: Haleigh was admitted to the hospital on 01/15/2018 after undergoing a scheduled ACDF of levels C4-5 and C5-6. She tolerated the procedure well and was transferred to a general surgical floor. Her diet was advanced and tolerated. She voided spontaneously. Her vital signs remained stable and within normal limits. Her neurovascular status remained intact with no evidence of worsening myelopathy while in hospital. Her pain was eventually controlled with the use of oral pain medications. She was evaluated and treated by physical therapy. She was deemed appropriate for discharge. 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 Ku in one week from date of surgery Medications at Discharge Discharge Medications: Stop taking the following medications: Meloxicam (Mobic) 15 MG TABLET ORAL DAILY Aspirin (Aspirin*) 325 MG TABLET ORAL DAILY Continue taking these medications: Amlodipine/Atorvastatin (Caduet 5 MG-10 MG Tablet) 5 MG-10 MG TABLET 1 Tablet ORAL DAILY Comments: MED SUBSTITUTED FOR SEPARATE DRUGS AMLODIPINE GIVEN 01/16/18 @ 8:30AM ATORVASTATIN NOT GIVEN Bupropion HCl (Wellbutrin Sr) 100 MG TABLET.ER 2 Tablet ORAL TWICE DAILY Comments: Last Taken: 01/16/18 Time: 8:30 AM Multiple Vitamin (Multivitamins) 1 EACH TABLET 1 Tablet ORAL DAILY Comments: NOT GIVEN Vitamin E (Vitamin E) (Unknown Strength) CAPSULE Unknown Dose ORAL DAILY Comments: NOT GIVEN Calcium (Elemental-Fr Calcarb) (Calcium) (Unknown Strength) TABLET Unknown Dose ORAL DAILY Comments: NOT GIVEN Cholecalciferol (Vitamin D3) (Vitamin D) (Unknown Strength) TABLET Unknown Dose ORAL DAILY Dexlansoprazole (Dexilant) 30 MG BP 1 Capsule ORAL DAILY Comments: SUBSTITUTED WITH PRILOSEC Last Taken: 01/16/18 Time: 6:00 AM Albuterol Sulfate (Proair Hfa) 90 MCG HFA.AER.AD 2 Puff Inhale through mouth As Directed as needed for RESP. Comments: NOT GIVEN Start taking the following new medications: Oxycodone HCl/Acetaminophen (Percocet 5-325 MG Tablet) 5 MG-325 MG TABLET 1-2 Tablet ORAL EVERY 4-6 HOURS as needed for PAIN Qty = 36 No Refills Diazepam (Valium) 5 MG TABLET 1 Tablet ORAL EVERY 8 HOURS NEEDED as needed for SPASMS Qty = 9 No Refills
[2018-01-16] MEDS ORDERED: PERCOCET 5-3251 EACH PO ×3 (07:45→11:02)
[2018-01-16] MEDS ORDERED: VALIUM5 M2 PO ×3 (07:45→11:02)
--- NOTE | 2018-01-16 07:55 | PN- Orthopedic ---
Subjective Subjective: No acute overnight events reported. Patient states that she is beginning to have sensation return to the tips of fingers 1-3 bilaterally. She denies upper extremity weakness. She states she has some residual weakness to bilateral lower extremities. She denies chest pain, shortness of breath and difficulty breathing. She denies nausea and vomitting. She ambulated with PT yesterday. Tolerated activity but required assistance. She has alston catheter in place, is yet to void. Objective Vital Signs and I&Os Vital Signs Date Time Temp Pulse Resp B/P B/P Pulse O2 O2 Flow FiO2 Mean Ox Delivery Rate 01/16 0500 97.8 77 18 150/74 95 Nasal Cannula 01/16 0055 97.9 80 18 146/74 95 Nasal Cannula 01/16 0000 Nasal 2.5L Cannula 01/15 2100 97.9 79 20 148/60 96 Nasal Cannula 01/15 1900 98.1 65 20 122/70 96 Nasal Cannula 01/15 1700 98.0 98 20 138/70 96 Nasal Cannula 01/15 1510 96 Nasal 2.5L Cannula 01/15 1500 98.8 92 18 148/72 96 Nasal 2.5L Cannula Intake & Output 01/16 0800 01/16 0000 01/15 1600 01/15 0800 01/15 0000 01/14 1600 Intake Total 800 400 Output Total 900 1450 Balance -100 -1050 Intake, IV 700 300 Intake, Oral 100 100 Number 0 Bowel Movements Output, Urine 900 1450 Patient 180 lb Weight Weight Reported by Patient Measurement Method Physical Exam: General: AAO x3, no acute distress Cards: RRR, s1s2 Pulm: CTA bilaterally ABD: Non-tender, non-distended HEENT: Voice strong, swallow intact Extremities: Moves all extremities, bialteral calves soft and non-tender Neuro: Sensation intact to fingers 1-3 bilaterally, reported numbness to 4-5 bialterally. Upper extremity strength 5/5 in flexion, 4/5 in extension. Hand geospatial information scientist 5/5 bilaterally Lower extremity distal sensation grossly intact. Strength 5/5 bilaterally in straight leg raise, plantar flexion, and dorsi flexion. Surgical site: Neck. Collar in place. Dressing dry and intact. No erythema. No swelling. Assessment/Plan Assessment/Plan This is a 62 year old female, POD 1, s/p ACDF C4-6 -Wean o2 -Follow up am labs -DC iv fluids -DC alston catheter -Diet as toelrated -OOB, collar at all times, pt to determine str vs home with pt, in all likelihood dc to home/[facility] -Continue oxycodone for pain -Continue prn valium for spasm -Decadron taper complete -Hold ppx aspirin for bleeding risk, will discuss when to restart with Dr. Ku Core Measures Venous Thromboembolism VTE Risk Factors Surgery No Mechanical VTE Prophylaxis d/t N/A MechProphylax Ordered No VTE Pharm Prophylaxis d/t Surgical Contraindication
[2018-01-16 08:27] VITALS: BP 158/68
[2018-01-16 09:03] LABS: ABSOLUTE BASOPHIL COUNT 0 /CUMM (0.0-0.2); ABSOLUTE EOSINOPHIL COUNT 0 /CUMM (0.0-0.7); ABSOLUTE GRANULOCYTE CT 15.3 /CUMM (1.4-6.5); ABSOLUTE LYMPH COUNT 0.8 /CUMM (1.2-3.4); ABSOLUTE MONOCYTE COUNT 0.2 /CUMM (0.10-0.60); BASOPHIL % 0 % (0.0-2.0); EOSINOPHIL % 0 % (0-5); GRANULOCYTE % 93.4 % (42.2-75.2); HEMATOCRIT 38.7 % (37-47); MEAN CORPUSCULAR HGB 30.2 PG (27.0-31.0); MEAN CORPUSCULAR HGB CONC 33.5 G/DL (33.0-37.0); MEAN CORPUSCULAR VOLUME 90.1 FL (81.0-99.0); MEAN PLATELET VOLUME 8.2 FL (7.4-10.4); PLATELET COUNT 291 /CUMM (130-400); RBC DISTRIBUTION WIDTH 13.9 % (11.5-14.5)
--- NOTE | 2018-01-16 09:06 | PN- Neurosurgical ---
Surgical Brief Attending Note Brief Attending Note: Postoperative day #1. Afebrile. Neck supple Has increased feelings in her hands and legs No new motor deficits Doing well. Could be discharged when cleared by Keyon Ku MD and follow-up in office
[2018-01-16 10:24] LABS: WHITE BLOOD CELL COUNT 16.4 /CUMM (4.8-10.8)
== END 2018-01-16 14:00 | disposition home health service (06) | DRG 472 ==
LOC: SDA 01:18 → ENRESERV 14:16 → ENTRNSPT 14:33 → EDTRNSPTSTS 14:38 → EDTRNSPT 14:38 → 2NA 14:47 → CMPTRNSPT 14:55 → ENPENDDIS 01-16 12:57 → ENTRNSPT 01-16 13:48 → EDTRNSPT 01-16 13:55 → EDTRNSPTSTS 01-16 13:55 → 2NA 01-16 14:00 → CMPTRNSPT 01-16 14:11
PROVIDERS: Physician Assistant Surgical
PROC: 0RB30ZZ Excision of Cervical Vertebral Disc, Open Approach (ICD-10-PCS; principal; 2018-01-15)
PROC: 0RG20A0 Fusion of 2 or more Cervical Vertebral Joints with Interbody Fusion Device, Anterior Approach, Anterior Column, Open Approach (ICD-10-PCS; principal; 2018-01-15)
DX: M50.022 Cervical disc disorder at C5-C6 level with myelopathy (principal); G95.89 Other specified diseases of spinal cord; M48.02 Spinal stenosis, cervical region; I10 Essential (primary) hypertension; J45.909 Unspecified asthma, uncomplicated; K21.9 Gastro-esophageal reflux disease without esophagitis; E78.5 Hyperlipidemia, unspecified; F17.210 Nicotine dependence, cigarettes, uncomplicated; G47.33 Obstructive sleep apnea (adult) (pediatric); M19.90 Unspecified osteoarthritis, unspecified site
CPT/HCPCS: 2NAP; 36415; 72040; 82436; 88304; 97110-GO; 97116-GO; 97161-GP; C1713; J0131; J0690; J1100; J3490; J7042